=== PATIENT | female | born 1950 | race American Indian/Alaskan Native ===

== ENCOUNTER 2017-08-20 18:09 | Emergency (ER) | payer MEDICAID, MEDICARE ==
[2017-08-20 19:02] LABS: Basophils % (Auto) 0.5 % (0.0-1.8); Eosinophils % (Auto) 0.4 % (0.0-4.3); Hematocrit 34.3 % (30.3-42.9); Hemoglobin 11.5 gm/dl (10.1-14.3); Mean Corpuscular HGB Conc 33 % (30-34); Mean Corpuscular Hemoglobin 29 pg (28-32); Mean Corpuscular Volume 87 fl (79-97); Platelet Count 413 K/mm3 (140-440); Red Blood Count 3.92 M/mm3 (3.65-5.03); Red Cell Distribution Width 14.7 % (13.2-15.2); White Blood Count 8.3 K/mm3 (4.5-11.0)
[2017-08-20 19:17] LABS: INR 1.06 (0.87-1.13); Partial Thromboplastin Time 26.9 Sec. (24.2-36.6)
[2017-08-20 19:23] LABS: Anion Gap 20 mmol/L; BUN/Creatinine Ratio 19; Blood Urea Nitrogen 13 mg/dL (7-17); Calcium 8.8 mg/dL (8.4-10.2); Carbon Dioxide 25 mmol/L (22-30); Glucose 129 mg/dL (65-100); Potassium 3.5 mmol/L (3.6-5.0); Sodium 143 mmol/L (137-145)
--- NOTE | 2017-08-20 20:07 | Cat Scan Report ---
FINAL REPORT EXAM: CT HEAD/BRAIN WO CON HISTORY: neuro deficits < 6hrs or sx present upon awakening TECHNIQUE: CT head without contrast PRIORS: No prior studies are submitted for comparison FINDINGS: There is a large mass centered at the right suprasellar and parasellar region borders are not well-defined. Within the center of this mass along the course of the cavernous ICA there is a vascular arterial stent present. No acute intra or extra-axial hemorrhage identified. There is some encephalomalacia with a low-density present right frontal/parietal region which appears likely chronic. Mattson-white matter differentiation appears intact. There is mild ventricular prominence. 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 Right frontal/parietal ischemic changes which appear likely chronic. Otherwise no acute findings
[2017-08-20] MEDS ORDERED: NACL ONE (22:23)
--- NOTE | 2017-08-21 00:20 | Cat Scan Report ---
FINAL REPORT EXAM: CT ANGIO HEAD HISTORY: slurred speech 2 weeks s/p aneuysm repair at [facility] TECHNIQUE: A CT angiogram was obtained of the intracranial arterial structures following intravenous injection of 100 cc of Omnipaque 350. Parasagittal, coronal and rotational MIP images were reviewed. FINDINGS: In the posterior circulation both vertebral arteries are widely patent and codominant. The basilar artery is widely patent and contains an 8 millimeter saccular aneurysm coming off the posterior margin of the middle 3rd of the artery. Both posterior cerebral arteries are widely patent. 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 Coming off the lateral wall of the cavernous carotid artery is an additional 6 millimeter saccular aneurysm. There is increased attenuation of the tissues lateral to the cavernous sinus suggesting the possibility of thrombus. No additional aneurysms are identified. There is normal visualization of the anterior and middle cerebral arteries bilaterally. The left internal carotid artery is unremarkable. The brain otherwise shows no evidence of additional abnormal areas of enhancement. There is a remote stroke in the right frontal lobe. There is generalized dilatation of ventricular system suggesting chronic communicating hydrocephalus. The posterior fossa also reveals a prominent cisterna magna. 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 Soft tissue fullness lateral to the artery suggesting adjacent thrombus. 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 Remote stroke in the right frontal lobe. Dilatation of the ventricular system suggesting chronic communicating hydrocephalus.
--- NOTE | 2017-08-21 01:31 | Emergency Department Report ---
- General Chief complaint: Weakness Stated complaint: POSSIBLE CVA Time Seen by Provider: 08/20/17 19:01 Source: family, EMS Mode of arrival: Stretcher Limitations: No Limitations - History of Present Illness Initial comments: patient with progressive weakness over the last 5 days and had slurred speech this am. Two weeks ago she had repair of aneurysm. After her surgery she had a seizure and was placed on divalproic acid. MD Complaint: generalized weakness -: Sudden Location: generalized Severity: moderate Quality: other (slurred speech this am was sudden.) Consistency: intermittent Improves with: none Worsens with: none Context: new medication (seizure medication) Associated Symptoms: denies other symptoms, headaches - Related Data Allergies Allergy/AdvReac Type Severity Reaction Status Date / Time Penicillins Allergy Unknown Verified 08/20/17 18:23 ED Review of Systems ROS: Stated complaint: POSSIBLE CVA Other details as noted in HPI Constitutional: weakness. denies: chills, fever Eyes: denies: eye pain, eye discharge, vision change ENT: denies: ear pain, throat pain Respiratory: denies: cough, shortness of breath, wheezing Cardiovascular: denies: chest pain, palpitations Endocrine: no symptoms reported Gastrointestinal: denies: abdominal pain, nausea, diarrhea Genitourinary: denies: urgency, dysuria, discharge Musculoskeletal: denies: back pain, joint swelling, arthralgia Skin: denies: rash, lesions Neurological: headache. denies: weakness, paresthesias Psychiatric: denies: anxiety, depression Hematological/Lymphatic: denies: easy bleeding, easy bruising ED Past Medical Hx - Past Medical History Previous Medical History?: Yes Hx Hypertension: Yes Hx Asthma: Yes Additional medical history: brain aneurysm x2 - Surgical History Additional Surgical History: brain surgery - Social History Smoking Status: Never Smoker Substance Use Type: None ED Physical Exam - General Limitations: No Limitations General appearance: alert, in no apparent distress - Head Head exam: Present: atraumatic, normocephalic - Eye Eye exam: Present: normal appearance - ENT ENT exam: Present: mucous membranes moist - Neck Neck exam: Present: normal inspection - Respiratory Respiratory exam: Present: normal lung sounds bilaterally. Absent: respiratory distress - Cardiovascular Cardiovascular Exam: Present: regular rate, normal rhythm. Absent: systolic murmur, diastolic murmur, rubs, gallop - GI/Abdominal GI/Abdominal exam: Present: soft, normal bowel sounds - Extremities Exam Extremities exam: Present: normal inspection - Back Exam Back exam: Present: normal inspection - Neurological Exam Neurological exam: Present: alert, oriented X3, CN II-XII intact, motor sensory deficit, reflexes normal, other (unable to test gait. She has a drooping right eyelid but family says that was present after surgery.) - Psychiatric Psychiatric exam: Present: normal affect, normal mood - Skin Skin exam: Present: warm, dry, intact, normal color. Absent: rash ED Course Vital Signs 08/20/17 08/20/17 08/20/17 18:23 19:36 19:45 Temperature 98.2 F Pulse Rate 68 57 L Respiratory 18 16 Rate Blood Pressure 167/85 163/84 164/82 O2 Sat by Pulse 100 100 100 Oximetry 08/20/17 08/20/17 08/20/17 19:54 20:00 20:15 Temperature Pulse Rate 64 61 Respiratory 16 20 19 Rate Blood Pressure 138/83 142/78 O2 Sat by Pulse 98 98 99 Oximetry 08/20/17 08/20/17 08/20/17 20:30 20:45 21:00 Temperature Pulse Rate 61 66 65 Respiratory 13 18 16 Rate Blood Pressure 153/86 153/86 163/93 O2 Sat by Pulse 100 99 Oximetry 08/20/17 08/20/17 08/20/17 21:15 21:30 21:45 Temperature Pulse Rate 71 61 63 Respiratory 54 H 15 18 Rate Blood Pressure 163/93 173/88 163/88 O2 Sat by Pulse 99 99 Oximetry 08/20/17 08/20/17 08/20/17 21:59 22:00 22:15 Temperature Pulse Rate 57 L 59 L 62 Respiratory 15 19 16 Rate Blood Pressure 163/88 156/87 153/90 O2 Sat by Pulse 99 99 99 Oximetry 08/20/17 08/21/17 08/21/17 23:58 00:00 00:15 Temperature Pulse Rate 63 54 L Respiratory 14 11 L Rate Blood Pressure 153/90 165/87 153/90 O2 Sat by Pulse 100 99 100 Oximetry 08/21/17 08/21/17 08/21/17 00:31 01:00 01:30 Temperature Pulse Rate 62 58 L 57 L Respiratory 13 15 18 Rate Blood Pressure 172/143 166/77 164/94 O2 Sat by Pulse 99 98 99 Oximetry ED Medical Decision Making - Lab Data Result diagrams: 08/20/17 18:36 08/20/17 18:36 Unremarkable - EKG Data EKG shows normal: sinus rhythm, ST-T waves (twave inversion II, II aVF) - EKG Data Interpretation: no acute changes, LVH - Radiology Data Radiology results: report reviewed CT head with no hemorrhage or occlusion. CTA with thrombus and known anerysms. Reviewed by neurology at [facility] and accepted transfer. - Medical Decision Making Patient with focal neurologic deficit. Normal CT head but concern for thrombus in CTA. Dr. Woodruff accepted the patient at [facility]. She will be transferred. Critical care attestation.: If time is entered above; I have spent that time in minutes in the direct care of this critically ill patient, excluding procedure time. ED Disposition Clinical Impression: Focal neurological deficit, Aneurysm Disposition: DC/TX-70 ANOTHER TYPE HLTHCARE Is pt being admited?: No Does the pt Need Aspirin: No Condition: Stable Additional Instructions: Patient accepted by Dr. Sher at [facility] neuro as transfer to inpatient. She had her surgery at [facility] and we do not have neurology service available to us. Time of Disposition: 02:23
[2017-08-21] MEDS ORDERED: SUBLIMAZE IV ONE (03:04)
[2017-08-21] MEDS ORDERED: DECADRON IV ONE (03:33)
[2017-08-21] MEDS ORDERED: BENADRYL IV ONE (03:33)
[2017-08-21] MEDS ORDERED: BENADRYL ONE (03:35)
[2017-08-21 03:56] VITALS: BP 148/80
== END 2017-08-21 04:09 | disposition other institution (70) ==
LOC: ED 18:09
DX: I72.9 Aneurysm of unspecified site (principal); R29.818 Other symptoms and signs involving the nervous system; I10 Essential (primary) hypertension; J45.909 Unspecified asthma, uncomplicated
CPT/HCPCS: 36415; 70450; 70496; 80048; 82962; 84484; 85025; 85610; 85670; 85730; 93005; 93010; 96374; 96375; 99285; J1100; J1200; J3010; Q9967